=== PATIENT | female | born 1965 | race Caucasian/White ===

== ENCOUNTER 2021-05-14 20:19 | Emergency (ER) | payer OTHER ==
[~2021-05-14] VITALS: Ht 170.2 cm; Wt 88.9 kg
[2021-05-14 20:25] VITALS: BP_SYST 146
--- NOTE | 2021-05-14 21:03 | NUR ---
Patient to ER bed 1 to gown for evaluation. Side rails up. Report given to ABDELRAHMAN.
--- NOTE | 2021-05-14 21:29 | NUR ---
ER at bedside examining patient.
--- NOTE | 2021-05-14 21:36 | NUR ---
PATIENT AAOX4 AND AMBULATORY FROM HOME C/O RIGHT MID BACK PAIN THAT STARTED YESTERDAY. STATED SHE WAS JUST SITTING AND RELAXING AND ALL OF THE SUDDEN GOT SHARP PAIN, NON-RADIATING WITH INSPIRATORY BREATHING. VSS. DENIES ANY SOB OR CP. WAS TAKING ABTX X14 DAYS FOR H.PYLORI. CURRENLY STATING 7/10 ON THE PAIN SCALE. WAS TAKING FLEXIRIL AT HOME WITH NO RELIEF.
[2021-05-14] MEDS ORDERED: KETOROLAC TROMETHAMINE 15 MG VIAL IVP ONE (21:45)
--- NOTE | 2021-05-14 21:46 | NUR ---
# 20 gauge angiocath placed to RAC. Use of asceptic technique. Opsite placed over site. Blood return noted. Blood for lab drawn from site. Flushed with 10 cc of normal saline. No evidence of infiltration noted. Patient tolerated well.
[2021-05-14 22:11] LABS: BASOPHILS % (AUTO) 0.3 % (0.0-2.0); EOSINOPHILS # (AUTO) 0.2 K/uL (0.0-0.4); EOSINOPHILS % (AUTO) 2.6 % (0.0-4.0); HEMATOCRIT 38.7 % (36-48); HEMOGLOBIN 13.2 g/dL (12.0-16.0); LYMPHOCYTES % (AUTO) 34.4 % (20.5-51.5); MEAN CORPUSCULAR HEMOGLOBIN 33 pg (27-31); MEAN CORPUSCULAR HGB CONC 34 % (32-36); MEAN CORPUSCULAR VOLUME 96 fL (79.0-98.0); MONOCYTES # (AUTO) 0.6 K/uL (0.0-1.0); MONOCYTES % (AUTO) 6.6 % (1.7-9.3); NEUTROPHILS # (AUTO) 4.8 K/uL (1.8-7.7); NEUTROPHILS % (AUTO) 56.1 % (40.0-70.0); PLATELET COUNT (AUTO) 269 K/uL (130-430); RED BLOOD CELL COUNT(AUTO) 4.02 MIL/uL (4.2-6.2); RED CELL DISTRIBUTION WIDTH 13.5 % (9.0-15.0); WHITE BLOOD COUNT (AUTO) 8.6 K/uL (4.8-10.8)
[2021-05-14 22:15] LABS: ANION GAP 6 (5-15); CALCIUM 8.8 mg/dL (8.4-11.0); CHLORIDE 104 mmol/L (98-107); CREATININE 0.84 mg/dL (0.55-1.30); GLUCOSE 97 mg/dL (70-99); POTASSIUM 3.6 mmol/L (3.5-5.1); SODIUM SERUM 141 mmol/L (136-145); UREA NITROGEN, BLOOD 20 mg/dL (8-21)
[2021-05-14 22:16] LABS: GFR AFRICAN AMERICAN 91 mL/min (>90)
[2021-05-14 22:23] LABS: ALANINE AMINOTRANSFERASE 39 U/L (12-78); ALBUMIN 3.5 g/dL (3.4-4.8); ASPARTATE AMINOTRANSFERASE 14 U/L (10-37); TOTAL BILIRUBIN 0.2 mg/dL (0.0-1.0)
--- NOTE | 2021-05-14 23:15 | NUR ---
Patient off unit to CT Scan
[2021-05-14] MEDS ORDERED: IOHEXOL 350 mgI/mL, 150 ML INFUS..BTL IV ONE (23:16)
--- NOTE | 2021-05-14 23:20 | NUR ---
Patient returned from CT Scan.
[2021-05-15] MEDS ORDERED: CEPH-548 PO (00:57)
[2021-05-15] MEDS ORDERED: cephALEXin 500 MG CAPSULE ONE (00:59)
[2021-05-15] MEDS ORDERED: cephALEXin 500 MG CAPSULE PO ONE (01:00)
[2021-05-15 01:03] VITALS: BP_SYST 122
--- NOTE | 2021-05-15 01:03 | NUR ---
Patient given written and verbal discharge instructions and verbalizes understanding. ER MD discussed with patient the results and treatment provided. Patient in stable condition. ID arm band removed. IV catheter removed intact and dressing applied, no active bleeding. Rx of Keflex given. Patient educated on pain management and to follow up with PMD. Pain Scale 0/10 Opportunity for questions provided and answered. Medication side effect fact sheet provided.
[2021-05-15 01:30] LABS: BILIRUBIN,URINE NEGATIVE (NEGATIVE); BLOOD, URINE 1+ (NEGATIVE); CLARITY/URINE SL CLOUDY (CLEAR); COLOR,URINE ORANGE (YELLOW); GLUCOSE,URINE NEGATIVE (NEGATIVE); KETONES,URINE NEGATIVE (NEGATIVE); LEUKOCYTE ESTERASE ,URINE 1+ (NEGATIVE); NITRITE, URINE POSITIVE (NEGATIVE); PH,URINE 6.5 (5.0-8.0); PROTEIN URINE NEGATIVE (NEGATIVE); UROBILINOGEN,URINE 0.2 (0.2-1.0)
[2021-05-15 01:57] LABS: BACTERIA,URINE MANY /HPF (None Seen); WBC,URINE 50-80 /HPF (0-3)
[2021-05-15 01:59] LABS: TRICHOMONAS,URINE None Seen /HPF (None Seen); YEAST,URINE None Seen /HPF (None Seen)
== END 2021-05-15 01:03 | disposition home or self-care (01) ==
LOC: SED 20:19
DX: N39.0 Urinary tract infection, site not specified (principal); R06.02 Shortness of breath; Z79.899 Other long term (current) drug therapy
CPT/HCPCS: 36415; 71045; 71275; 76376; 80053; 81000; 83880; 84484; 85025; 85379; 87086; 93005; 96374; 99285; J1885; Q9967